=== PATIENT | female | born 1945 | race Caucasian/White ===

== ENCOUNTER 2019-06-05 10:26 | Outpatient (CLI) | payer MEDICARE, BC ==
--- NOTE | 2019-06-05 11:19 | RAD ---
LUMBAR SPINE 3 VIEWS: Date: 06/05/19 HISTORY: Dorsalgia, back pain. FINDINGS/IMPRESSION: No acute fracture or subluxation is seen. There are degenerative changes. POS: [facility]
--- NOTE | 2019-06-05 11:20 | RAD ---
THORACIC SPINE 3 VIEWS: Date: 06/05/19 HISTORY: Back pain. FINDINGS/IMPRESSION: There are degenerative changes. There is severe compression of a mid/lower thoracic vertebral body. POS: [facility]ATHIE
== END 2019-06-05 10:27 | disposition home or self-care (01) ==
LOC: BICRAD 10:26
PROVIDERS: ATTEND Internal Medicine
DX: M54.9 Dorsalgia, unspecified (principal); M47.814 Spondylosis without myelopathy or radiculopathy, thoracic region; M48.54XA Collapsed vertebra, not elsewhere classified, thoracic region, initial encounter for fracture; M47.816 Spondylosis without myelopathy or radiculopathy, lumbar region
CPT/HCPCS: 72072; 72100

== ENCOUNTER 2022-12-03 07:34 | Outpatient (CLI) | payer MEDICARE, BC | END 2022-12-03 07:35 | disposition home or self-care (01) | LOC: BICULT 07:34 | PROVIDERS: ATTEND Physician Assistant Medical | DX: K75.81 Nonalcoholic steatohepatitis (NASH) (principal); K76.0 Fatty (change of) liver, not elsewhere classified | CPT/HCPCS: 76705 ==

== ENCOUNTER 2022-12-11 14:26 | Outpatient (CLI) | payer MEDICARE, BC | END 2022-12-11 14:27 | disposition home or self-care (01) | LOC: BICMAMMO 14:26 | PROVIDERS: ATTEND Internal Medicine | DX: Z12.31 Encounter for screening mammogram for malignant neoplasm of breast (principal); Z13.820 Encounter for screening for osteoporosis; Z78.0 Asymptomatic menopausal state; M81.0 Age-related osteoporosis without current pathological fracture; Z80.3 Family history of malignant neoplasm of breast; Z91.89 Other specified personal risk factors, not elsewhere classified | CPT/HCPCS: 77063; 77067; 77080 ==

== ENCOUNTER 2023-03-01 07:31 | Outpatient (CLI) | payer MEDICARE, BC | END 2023-03-01 07:32 | disposition home or self-care (01) | LOC: NM 07:31 | PROVIDERS: ATTEND Physician Assistant Medical | DX: K22.70 Barrett's esophagus without dysplasia (principal); R63.4 Abnormal weight loss; K21.9 Gastro-esophageal reflux disease without esophagitis; R10.13 Epigastric pain; R14.0 Abdominal distension (gaseous); R32 Unspecified urinary incontinence | CPT/HCPCS: 78264; A9541 ==

== ENCOUNTER 2024-09-19 14:10 | Outpatient (CLI) | payer MEDICARE | END 2024-09-19 14:11 | disposition home or self-care (01) | LOC: BICMAMMO 14:10 | PROVIDERS: ATTEND Internal Medicine | DX: Z12.31 Encounter for screening mammogram for malignant neoplasm of breast (principal); N63.25 Unspecified lump in the left breast, overlapping quadrants; Z80.3 Family history of malignant neoplasm of breast; Z91.89 Other specified personal risk factors, not elsewhere classified | CPT/HCPCS: 77063; 77067 ==

== ENCOUNTER 2024-09-29 13:57 | Outpatient (CLI) | payer MEDICARE | END 2024-09-29 13:58 | disposition home or self-care (01) | LOC: BICMAMMO 13:57 | PROVIDERS: ATTEND Internal Medicine | DX: N63.20 Unspecified lump in the left breast, unspecified quadrant (principal); R92.332 Mammographic heterogeneous density, left breast | CPT/HCPCS: 77065; G0279 ==